=== PATIENT | female | born 1940 | race Caucasian/White ===

== ENCOUNTER 2017-12-22 21:26 | Emergency (ER) | payer MEDICARE ==
[~2017-12-22] VITALS: Ht 157.5 cm; Wt 72.6 kg
[2017-12-22 22:13] LABS: BASOPHILS ABSOLUTE AUTO 0.01 K/mm3 (0.00-0.23); BASOPHILS PERCENT AUTO 0 % (0-2); EOSINOPHILS ABSOLUTE AUTO 0.02 K/mm3 (0.00-0.68); EOSINOPHILS PERCENT AUTO 0 % (0-6); Hematocrit 37.8 % (33.0-51.0); Hemoglobin 11.5 g/dL (11.5-16.0); IMMATURE GRAN ABSOLUTE AUTO 0.03 K/mm3 (0.00-0.10); IMMATURE GRAN PERCENT AUTO 0 % (0-1); LYMPHOCYTES ABSOLUTE AUTO 1.44 K/mm3 (0.84-5.20); LYMPHOCYTES PERCENT AUTO 21 % (21-46); MONOCYTES ABSOLUTE AUTO 0.61 K/mm3 (0.16-1.47); MONOCYTES PERCENT AUTO 9 % (4-13); Mean Corpuscular HGB 26.7 pg (26.0-34.0); Mean Corpuscular HGB Conc 30.4 g/dL (31.5-36.5); Mean Corpuscular Volume 88 fL (80-100); Mean Platelet Volume 10.1 fL (9.1-12.4); NEUTROPHILS ABSOLUTE AUTO 4.65 K/mm3 (1.96-9.15); NEUTROPHILS PERCENT AUTO 69 % (41-73); Platelet Count 285 K/mm3 (150-400); RDW Coefficient Variation 16.6 % (11.7-14.2); RDW Standard Deviation 53.8 fL (35.1-46.3); Red Blood Cell Count 4.31 M/mm3 (3.80-5.20); White Blood Cell Count 6.76 K/mm3 (4.00-11.30)
[2017-12-22 22:39] LABS: Alanine Aminotransfer (ALT/SGP 10 U/L (12-78); Albumin, Blood 3.3 g/dL (3.4-5.0); Albumin/Globulin Ratio 0.8 (0.8-1.8); Alk Phos 70 U/L (50-136); Anion Gap 7 mmol/L (6-16); Aspartate Aminotrans (AST/SGOT 13 U/L (12-37); Bilirubin, Total 0.8 mg/dL (0.1-1.0); Blood Urea Nitrogen 10 mg/dL (8-24); Bun/Creatinine Ratio 17.1 (12.0-20.0); CO2, Blood 27 mmol/L (21-32); Calcium, Blood 8.7 mg/dL (8.5-10.1); Chloride, Blood 108 mmol/L (98-108); Creatinine, Blood 0.59 mg/dL (0.40-1.00); Globulin, Blood 4.1 g/dL (2.2-4.0); Glomerular Filtration Rate >60 (60-); Glucose, Blood 102 mg/dL (70-99); Potassium, Blood 3.9 mmol/L (3.5-5.5); Sodium, Blood 142 mmol/L (136-145); Total Protein, Blood 7.4 g/dL (6.4-8.2); Troponin I <0.015 ng/mL (0.000-0.040)
[2017-12-23] MEDS ORDERED: HYDROCODON-ACE1 EACH PO (13:37)
[2017-12-23] MEDS ORDERED: Zofran4 MG PO (14:20)
== END 2017-12-23 01:00 | disposition home or self-care (01) ==
LOC: ER 21:26
PROVIDERS: Emergency Medicine
DX: S16.1XXA Strain of muscle, fascia and tendon at neck level, initial encounter (principal); S00.83XA Contusion of other part of head, initial encounter; W19.XXXA Unspecified fall, initial encounter
CPT/HCPCS: 70450; 71046; 72040; 80053; 84484; 85025; 93005; 93010; 99284-25

== ENCOUNTER 2017-12-23 10:06 | Emergency (ER) | payer MEDICARE ==
[~2017-12-23] VITALS: Ht 157.5 cm; Wt 68.0 kg
[2017-12-23] MEDS ORDERED: HYDROCODON-ACE1 EACH PO (13:37)
[2017-12-23] MEDS ORDERED: Zofran4 MG PO (14:20)
== END 2017-12-23 15:20 | disposition home or self-care (01) ==
LOC: ER 10:06
DX: S12.01XA Stable burst fracture of first cervical vertebra, initial encounter for closed fracture (principal); S12.110A Anterior displaced Type II dens fracture, initial encounter for closed fracture; S12.030A Displaced posterior arch fracture of first cervical vertebra, initial encounter for closed fracture; W19.XXXA Unspecified fall, initial encounter
CPT/HCPCS: 36415; 72125; 96372; 96374; 96375; 96376; 99283-25; J0780; J1170; J1200; J2405; J3010; L0160

== ENCOUNTER 2019-02-10 16:39 | Inpatient (IN) | payer MEDICARE, OTHER ==
[~2019-02-10] VITALS: Ht 162.6 cm; Wt 67.3 kg
[~2019-02-10 16:39] MED LIST: HYDROCODON-ACE1 EACH PO; Zofran4 MG PO
[2019-02-10 17:24] LABS: BASOPHILS ABSOLUTE AUTO 0.02 K/mm3 (0.00-0.23); BASOPHILS PERCENT AUTO 0 % (0-2); EOSINOPHILS PERCENT AUTO 0 % (0-6); Hematocrit 19.8 % (33.0-51.0); IMMATURE GRAN ABSOLUTE AUTO 0.25 K/mm3 (0.00-0.10); IMMATURE GRAN PERCENT AUTO 3 % (0-1); LYMPHOCYTES ABSOLUTE AUTO 0.58 K/mm3 (0.84-5.20); LYMPHOCYTES PERCENT AUTO 7 % (21-46); MONOCYTES ABSOLUTE AUTO 0.63 K/mm3 (0.16-1.47); MONOCYTES PERCENT AUTO 8 % (4-13); Mean Corpuscular HGB Conc 25.3 g/dL (31.5-36.5); Mean Corpuscular Volume 91 fL (80-100); Mean Platelet Volume 10.3 fL (9.1-12.4); NEUTROPHILS ABSOLUTE AUTO 6.86 K/mm3 (1.96-9.15); NEUTROPHILS PERCENT AUTO 82 % (41-73); NRBC ABSOLUTE 0.03 K/mm3 (0.00-0.02); NRBC Auto 0.4 /100 WBC (0.0-0.2); Platelet Count 148 K/mm3 (150-400); RDW Coefficient Variation 22.8 % (11.7-14.2); RDW Standard Deviation 71.6 fL (35.1-46.3); Red Blood Cell Count 2.17 M/mm3 (3.80-5.20); White Blood Cell Count 8.34 K/mm3 (4.00-11.30)
[2019-02-10 17:37] LABS: Alanine Aminotransfer (ALT/SGP 12 U/L (12-78); Albumin, Blood 3.2 g/dL (3.4-5.0); Albumin/Globulin Ratio 0.9 (0.8-1.8); Alk Phos 60 U/L (50-136); Anion Gap 8 mmol/L (6-16); Aspartate Aminotrans (AST/SGOT 7 U/L (12-37); Bilirubin, Total 1.4 mg/dL (0.1-1.0); Blood Urea Nitrogen 15 mg/dL (8-24); Bun/Creatinine Ratio 17.9 (12.0-20.0); CO2, Blood 25 mmol/L (21-32); Calcium, Blood 8.8 mg/dL (8.5-10.1); Chloride, Blood 110 mmol/L (98-108); Creatinine, Blood 0.84 mg/dL (0.40-1.00); Ethanol (Alcohol), Blood, Med <3 mg/dL; Globulin, Blood 3.4 g/dL (2.2-4.0); Glomerular Filtration Rate >60 (60-); Glucose, Blood 142 mg/dL (70-99); Potassium, Blood 3.6 mmol/L (3.5-5.5); Sodium, Blood 143 mmol/L (136-145); Total Protein, Blood 6.6 g/dL (6.4-8.2)
[2019-02-10 17:47] LABS: International Normalized Ratio 1.18; Prothrombin Time Results 12.3 Sec (9.7-11.5)
--- NOTE | 2019-02-10 18:34 | NUR ---
Spoke with Dr Cerda and discussed case. Pt resting on gurney and is non verbal. Pt's daughter Ciara and Pt's granddaughter are present during visit. Pt appears comfortable with no S/S of distress at this time. Therapeutic discussion occured and listend to Ciara express concerns if she could have done something to prevent this from happening. Reassured Ciara and offered emotional support. Ciara tearful for much of the visit. Discussed code status with Ciara. Ciara states she does not think her mom would want to have any extraordinary measures such as CPR and Intubation but would like to discuss further with rosi. Instructed Ciara Palliative Care will continue to follow Pt for therapeutic visits and will revisit goals of care as needed. Abeba express appreciation on visit and is agreeable with continued visits. Palliative Care will F/U with Pt once admitted to the floor.
--- NOTE | 2019-02-11 04:13 | NUR ---
GI CONSULT CALLED IN TO ANSWERING SERVICE. DR WALI SEYMOUR [facility]. ([id number])
[2019-02-11 05:17] LABS: Hematocrit 22.7 % (33.0-51.0); Hemoglobin 6.3 g/dL (11.5-16.0); Mean Corpuscular HGB 24.7 pg (26.0-34.0); Mean Corpuscular HGB Conc 27.8 g/dL (31.5-36.5); Mean Corpuscular Volume 89 fL (80-100); NRBC ABSOLUTE 0.11 K/mm3 (0.00-0.02); NRBC Auto 1.4 /100 WBC (0.0-0.2); Platelet Count 120 K/mm3 (150-400); RDW Coefficient Variation 19.9 % (11.7-14.2); RDW Standard Deviation 60.4 fL (35.1-46.3); Red Blood Cell Count 2.55 M/mm3 (3.80-5.20); White Blood Cell Count 7.63 K/mm3 (4.00-11.30)
[2019-02-11 05:34] LABS: Anion Gap 8 mmol/L (6-16); Blood Urea Nitrogen 10 mg/dL (8-24); Bun/Creatinine Ratio 14.5 (12.0-20.0); CO2, Blood 24 mmol/L (21-32); Chloride, Blood 113 mmol/L (98-108); Creatinine, Blood 0.69 mg/dL (0.40-1.00); Glomerular Filtration Rate >60 (60-); Glucose, Blood 81 mg/dL (70-99); Potassium, Blood 3.3 mmol/L (3.5-5.5); Sodium, Blood 145 mmol/L (136-145)
--- NOTE | 2019-02-11 05:51 | NUR ---
PATIENT ARRIVED TO THE UNIT AT 2144 AND HER FIRST UNIT OF BLOOD WAS JUST FINISHING WITH ITS TRANSFUSION. 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 SHE IS PLEASANT AND UPBEAT BUT IS UNABLE TO COMMUNICATE OR MAKE HER NEEDS KNOWN. SHE WAS TRANSFUSED WITH A SECOND UNIT OF BLOOD ON THE UNIT AND A SECOND THROUGH AN IV IN HER RIGHT AC. A SECOND IV WAS PLACED IN HER LEFT FOREARM THROUGH WHICH HER MAINTENANCE FLUIDS AND PROTONIX ARE INFUSING. BED IN LOWEST POSITION WITH WHEELS LOCKED AND ALARM ON. CALL LIGHT WITHIN REACH. REPORT GIVEN TO ONCDEVI COLEMAN.
[2019-02-11 06:30] LABS: BAND PERCENT MAN 2 % (0-8); BASOPHILS ABSOLUTE MAN 0.15 K/mm3 (0.00-0.23); BASOPHILS PERCENT MAN 2 % (0-2); BLASTS PERCENT MAN 1 % (0-0); EOSINOPHILS PERCENT MAN 0 % (0-6); LYMPHOCYTES ABSOLUTE MAN 1.29 K/mm3 (0.84-5.20); LYMPHOCYTES PERCENT MAN 17 % (21-46); METAMYELOCYTE ABSOLUTE MAN 0.22 K/mm3 (0.00-0.00); METAMYELOCYTE PERCENT MAN 3 % (0-0); MONOCYTES ABSOLUTE MAN 0.38 K/mm3 (0.16-1.47); MONOCYTES PERCENT MAN 5 % (4-13); NEUTROPHILS ABSOLUTE MAN 5.41 K/mm3 (1.96-9.15); PROMYELOCYTE ABSOLUTE MAN 0.07 K/mm3 (0.00-0.00); PROMYELOCYTE PERCENT MAN 1 % (0-0); SEG NEUTROPHILS PERCENT MAN 69 % (41-73); TOTAL CELLS COUNTED 100
--- NOTE | 2019-02-11 06:35 | NUR ---
HgB 6.[address] LUU NOTIFIED AND ORDERED ONE UNIT PRBC.
[2019-02-11 12:43] LABS: Hematocrit 28.6 % (33.0-51.0); Hemoglobin 8.2 g/dL (11.5-16.0); Mean Corpuscular HGB 25.9 pg (26.0-34.0); Mean Corpuscular HGB Conc 28.7 g/dL (31.5-36.5); Mean Corpuscular Volume 90 fL (80-100); Mean Platelet Volume 10.8 fL (9.1-12.4); NRBC ABSOLUTE 0.11 K/mm3 (0.00-0.02); NRBC Auto 1.4 /100 WBC (0.0-0.2); Platelet Count 123 K/mm3 (150-400); RDW Coefficient Variation 19.3 % (11.7-14.2); RDW Standard Deviation 59.2 fL (35.1-46.3); Red Blood Cell Count 3.17 M/mm3 (3.80-5.20); White Blood Cell Count 7.84 K/mm3 (4.00-11.30)
[2019-02-11 13:06] LABS: BASOPHILS PERCENT MAN 0 % (0-2); EOSINOPHILS PERCENT MAN 0 % (0-6); LYMPHOCYTES ABSOLUTE MAN 1.88 K/mm3 (0.84-5.20); LYMPHOCYTES PERCENT MAN 24 % (21-46); MONOCYTES ABSOLUTE MAN 0.23 K/mm3 (0.16-1.47); MONOCYTES PERCENT MAN 3 % (4-13); MYELOCYTE ABSOLUTE MAN 0.07 K/mm3 (0.00-0.00); MYELOCYTE PERCENT MAN 1 % (0-0); NEUTROPHILS ABSOLUTE MAN 5.64 K/mm3 (1.96-9.15); SEG NEUTROPHILS PERCENT MAN 72 % (41-73); TOTAL CELLS COUNTED 100
--- NOTE | 2019-02-11 13:28 | NUR ---
PATIENT NOTED TO HAVE A REDDENED BOTTOM. WITH LAST CHANGE WE APPLIED SOME BARRIER CREAM AND A MEPILEX BANDAGE TO THE SACRUM TO HELP PROTECT IT. IT APPEARS TO HAVE SOME PREVIOUS BREAKDOWN THAT HAS SINCE HEALED. Q2HRS REPOSITIONING.
[2019-02-11 15:04] LABS: Hemoglobin 8.1 g/dL (11.5-16.0)
--- NOTE | 2019-02-11 15:07 | NUR ---
Spoke with Janene from PT and discussed case. Pt resting in bed and is non verbal. Pt is able to answer yes and no questions by nod her head up and down and side to side. Pt denies pain and dyspnea. When ask if comfortable Pt indicates yes by nod her her head up and down. Discussed case with bedside nurse Rossana. Reviewed hospitalist notes. Palliative Care will remain available.
--- NOTE | 2019-02-11 15:30 | NUR ---
SHIFT SUMMARY THE PATIENT HAS HAD AND UNEVENTFUL DAY. SHE RECEIVED A TOTAL OF 3 UNITS OF PRBC'S SINCE ADMIT LAST NIGHT AND HAS TOLERATED THE TRANSFUSIONS WITHOUT ANY REACTIONS NOTED. VITALS HAVE REMAINED STABLE. DR FANG CAME TO EXAMINE PATIENT THIS MORNING AND ORDERED 2 BAGS OF K-RIDERS; NS WITH 20MeQ ON HOLD AND WILL RESUME AT 50ML/HR AT THE COMPLETION OF THE K-RIDE INFUSIONS. THE PATIENT IS ALERT BUT RESPONDS AT MOST TO YES/NO QUESTIONS. RIGHT-SIDED WEAKNESS NOTED. THE PATIENT IS REPOSITIONED FREQUENTLY AND CHANGED NEEDED. WILL CONTINUE TO MONITOR AND PROVIDE CARE NEEDED.
--- NOTE | 2019-02-11 17:01 | NUR ---
Spiritual Care inital note: I met this pt's family last evening in ED. DenisrCiara is an employee here and appreciaitive of emotional/spiritual support. This afternoon, no family was present when I visited pt. She appeared peaceful and well cared-for by nursing. Prayer provided at bedside. [facility] will remain available.
--- NOTE | 2019-02-11 19:25 | NUR ---
BOTH BAGS OF K-RIDERS COMPLETED INFUSING. NS WITH 20MEQ KCL INFUSING NOW AT 50/HR. BAG NOT SCANNED IT IS SAME BAG OF FLUIDS FROM THIS AFTERNOON.
[2019-02-11 20:46] LABS: Hematocrit 27.5 % (33.0-51.0); Hemoglobin 7.9 g/dL (11.5-16.0)
--- NOTE | 2019-02-12 04:14 | NUR ---
Shift Summary Patient has been sleeping well overnight. Her neuro status has remained unchanged. She has right side hemiplegia with some right toe and foot movement. She nods "yes" and "no", and appears to understand what is said to her, but she has produced almost no verbal communication. Assisted to reposition q2h. Monitoring H&H labs closely -- 20:00 hgb result of 7.9 was reported to Rayne Haro NP per protocol and no new orders were recieved. She recommended to wait until 0501 check unless symptomatic, and report per protocol again if necessary at that time.
[2019-02-12 05:17] LABS: Hematocrit 25.7 % (33.0-51.0); Hemoglobin 7.3 g/dL (11.5-16.0)
--- NOTE | 2019-02-12 05:30 | NUR ---
Hemoglobin Hgb of 7.3 this AM -- called hospitalist per protocol, no new orders recieved at this time. Pt is asymptomatic. Will inform oncoming shift of hgb trend.
[2019-02-12 05:33] LABS: Anion Gap 9 mmol/L (6-16); Blood Urea Nitrogen 8 mg/dL (8-24); Bun/Creatinine Ratio 13.1 (12.0-20.0); CO2, Blood 22 mmol/L (21-32); Chloride, Blood 112 mmol/L (98-108); Creatinine, Blood 0.61 mg/dL (0.40-1.00); Glomerular Filtration Rate >60 (60-); Glucose, Blood 73 mg/dL (70-99); Magnesium, Blood 1.9 mg/dL (1.6-2.4); Potassium, Blood 3.9 mmol/L (3.5-5.5); Sodium, Blood 143 mmol/L (136-145)
--- NOTE | 2019-02-12 05:58 | NUR ---
bus driver/monitor thech called to report 8 beats of v-tach, and a return to previous SR. This is the first occurance noted on telemetry. Discussed with charge histotechnologist, will relay information to oncoming shift
--- NOTE | 2019-02-12 14:44 | NUR ---
"DAY SURGERY RN | INTO DAY SURGERY Patient and patient family here with physicians discussing care."
--- NOTE | 2019-02-12 14:49 | NUR ---
"DAY SURGERY RN | TO ENDO ROOM REPORT OFF TO CALI RN."
--- NOTE | 2019-02-12 14:52 | NUR ---
02/12/19 1452 JIMMY BRADY History, Chart, Medications and Allergies reviewed before start of procedure.O2 VIA N/C INTACT THROUGHOUT SEDATION/PROCEDURE. 3-LEAD EKG REVIEWED WITH PHYSICIAN PRIOR TO START OF PROCEDURE.MONITOR INTACT WITH CONTINUOUS PULSE OXIMETRY AND INTERMITTENT BP.See Anesthesia record.
--- NOTE | 2019-02-12 18:11 | NUR ---
review of plan of care with physician and nursing. will speak with daughter about pt trajectory of diagnosis and advanced care plan if plan fails if and when she should consider hospice care to avoid suffering.
--- NOTE | 2019-02-12 18:16 | NUR ---
SHIFT SUMMARY PT RESTING QUIETLY, AWAKE, DURING SHIFT REPORT. PROTONIX DRIP AND NS INFUSING PER EMAR. PT ADMITTED FOR CVA, BUT FOUND TO POSSIBLY HAVE GIB WELL. PER REPORT, PT FOUND DOWN AFTER 20 HRS, BY DAUGHTER. PT RECENTLY MOVED FROM [facility] AND NOW LIVING WITH DAUGHTER. R SIDED DEFICITS NOTED WITH SM AMT OF SLIGHT MOVEMENT IN R ARM AND R LEG. R FACIAL DROOP. ABLE TO HEAR AND UNDERSTAND QUESTIONS, BUT ONLY ABLE TO ANS YES OR NO. PT NPO ALL DAY FOR EGD DONE THIS AFTERNOON, BUT ALSO NPO UNTIL ST EVAL FOR CVA. PT RETURNED FROM EGD THIS AFTERNOON; TOLERATED WELL. PT NOW TO HAVE COLONOSCOPY TOMORROW AND WILL CONTINUE TO BE NPO FOR THAT AND THEN HAVE ST EVAL AFTERWARDS. ORDERS TO PLACE NGT FOR BOWEL PREP ADMIN; DONE BY SANTOS COLEMAN. PT TOLERATED WELL. XRAY VERIFICATION COMPLETE. GOLYTELY TO BE STARTED AT 2000 TONIGHT; ORDERS ON CHART. FAMILY TO A COUPLE OF TIMES TODAY AND FOLLOWED PT TO DAY SX FOR EGD. FAMILY RETURNED TO AND EXPLAINED NGT PLACEMENT WELL. PT UNDERSTANDING. INCONTINENT OF BOWEL AND BLADDER ALL DAY. BROWN, LIQUID STOOL. PT DENIED PAIN, NO NEEDS TO PRESENT. CALL LT IN REACH.
--- NOTE | 2019-02-12 21:47 | NUR ---
At shift commence report received that NG tube had been placed for administration of Go-Lytely for prep for colonoscopy in the AM. Tube placement checked. HOB elevated to 75 degrees. Go-Lytely started per NG. No noted distress. Monitoring continues per medical assistant ob gyn. Call light in reach.
--- NOTE | 2019-02-12 23:38 | NUR ---
FIRST GALLON OF GO-LYTELY INGESTED. HAS HAD LARGE LIQUID STOOL, BROWN. WILL ASSESS AND IF NEEDED, WILL START SECOND GALLON PER MD ORDERS.
--- NOTE | 2019-02-13 04:46 | NUR ---
Pt remains NPO until swallow study completed. IVF of NS with 20mEq KCL infusing at 50 ml/hr, as well as a Protonix drip at 10 ml/hr, see MAR for details. Received Go-Lytely one gallon over the PM/ early night hours as prep for a colonoscopy scheduled for today per NG tube. Several liquid stools have happened since prep administered. Verbal response improved over shift, from moans in the beginning to one to two word answers later on. HOB elevated to prevent aspiration. Call light in reach.
[2019-02-13 05:20] LABS: Hematocrit 27.1 % (33.0-51.0); Hemoglobin 7.8 g/dL (11.5-16.0)
--- NOTE | 2019-02-13 06:04 | NUR ---
Pt continues to defecate brown tinged liquid stool. As per MD orders, 2nd gallon of Go-Lytely started. Changed again for incont of stool. Call light in reach.
[2019-02-13 08:39] LABS: Anion Gap 12 mmol/L (6-16); Blood Urea Nitrogen 6 mg/dL (8-24); Bun/Creatinine Ratio 9.1 (12.0-20.0); CO2, Blood 22 mmol/L (21-32); Calcium, Blood 7.9 mg/dL (8.5-10.1); Chloride, Blood 111 mmol/L (98-108); Creatinine, Blood 0.66 mg/dL (0.40-1.00); Glomerular Filtration Rate >60 (60-); Glucose, Blood 65 mg/dL (70-99); Magnesium, Blood 1.8 mg/dL (1.6-2.4); Potassium, Blood 3.4 mmol/L (3.5-5.5); Sodium, Blood 145 mmol/L (136-145)
--- NOTE | 2019-02-13 13:23 | NUR ---
PATIENT UNABLE TO SPEAK, NODS YES, FAMILY HERE TO CONSENT FOR CARE.
--- NOTE | 2019-02-13 13:38 | NUR ---
02/13/[address] HERE TO PROVIDE ANESTHESIA CARE, PLEASE SEE DETAILED RECORD OF CARE. History, Chart, Medications and Allergies reviewed before start of procedure. MONITOR INTACT WITH CONTINUOUS PULSE OXIMETRY AND INTERMITTENT BP. O2 VIA N/C INTACT THROUGHOUT SEDATION/PROCEDURE.
--- NOTE | 2019-02-13 17:02 | NUR ---
SHIFT SUMMARY PT RECEIVED 1/2 OF 2ND BOTTLE OF GOLYTELY THIS MORNING AND TOLERATED WITH NO PROBLEM. DID FINALLY CLEAR AND NOTIFIED DAY SURGERY AT 1030. FAMILY IN ROOM. DAY SURGERY HERE TO PICK PT UP AT 1315 AND LEFT VIA GURNEY. RETURNED APPROX 1600 AWAKE AND ALERT. FAMILY BACK IN ROOM. RISK TECH CAME TO SEE PT THIS A.M. BUT PALMIRA WAS PUT ON HOLD DUE TO COLONOSCOPY PREP BEING GIVEN. PT HAS BEEN ABLE TO YES/NO AND NOD/SHAKE HER HEAD BUT NO WORD BEYOND THAT OR ATTEMPTS TO SPEAK. SMILES EASILY AND APPEARS TO UNDERSTAND.
--- NOTE | 2019-02-14 04:22 | NUR ---
REPOSITIONED OFTEN FOR COMFORT AND SKIN MAINTENACE. RIGHT SIDE REMAINS WEAK, RIGHT FACIAL DROOP CONTINUES. IVF OF NS WITH 20 MEQ KCL CONTINUES AT 50 ML/HR PER MD ORDERS. VERBAL RESPONSE CONTINUES TO BE 1 OR 2 WORD ANSWERS TO QUESTIONS POSED. RESPONSE IS APPROPRIATE TO QUESTIONS. CALL LIGHT IN REACH.
[2019-02-14 07:52] LABS: BASOPHILS ABSOLUTE AUTO 0.02 K/mm3 (0.00-0.23); BASOPHILS PERCENT AUTO 0 % (0-2); EOSINOPHILS ABSOLUTE AUTO 0.01 K/mm3 (0.00-0.68); EOSINOPHILS PERCENT AUTO 0 % (0-6); Hematocrit 28.4 % (33.0-51.0); IMMATURE GRAN ABSOLUTE AUTO 0.34 K/mm3 (0.00-0.10); IMMATURE GRAN PERCENT AUTO 5 % (0-1); LYMPHOCYTES ABSOLUTE AUTO 1.41 K/mm3 (0.84-5.20); LYMPHOCYTES PERCENT AUTO 21 % (21-46); MONOCYTES ABSOLUTE AUTO 0.53 K/mm3 (0.16-1.47); MONOCYTES PERCENT AUTO 8 % (4-13); Mean Corpuscular HGB 26.2 pg (26.0-34.0); Mean Corpuscular HGB Conc 28.2 g/dL (31.5-36.5); Mean Platelet Volume 9.6 fL (9.1-12.4); NEUTROPHILS PERCENT AUTO 66 % (41-73); Platelet Count 140 K/mm3 (150-400); RDW Coefficient Variation 20.4 % (11.7-14.2); Red Blood Cell Count 3.05 M/mm3 (3.80-5.20); White Blood Cell Count 6.81 K/mm3 (4.00-11.30)
[2019-02-14 07:53] LABS: Mean Corpuscular Volume 93 fL (80-100)
[2019-02-14 08:06] LABS: Anion Gap 12 mmol/L (6-16); Blood Urea Nitrogen 6 mg/dL (8-24); Bun/Creatinine Ratio 10.8 (12.0-20.0); CO2, Blood 21 mmol/L (21-32); Calcium, Blood 8.1 mg/dL (8.5-10.1); Chloride, Blood 108 mmol/L (98-108); Creatinine, Blood 0.56 mg/dL (0.40-1.00); Glomerular Filtration Rate >60 (60-); Glucose, Blood 52 mg/dL (70-99); Potassium, Blood 3.5 mmol/L (3.5-5.5); Sodium, Blood 141 mmol/L (136-145)
--- NOTE | 2019-02-14 18:25 | NUR ---
SHIFT SUMMARY PT UP IN RECLINER CHAIR MID MORNING AND TOLERATED TIL APPROX MID AFTERNOON. FAMILY AT BEDSIDE THIS MORNING. SHAKES HER HEAD NO WHEN ASKED IF SHE HAS PAIN OR DISCOMFORT. DISCHARGE HELD DUE TO CONTINUED NPO STATUS TIL SEEN BY CLINICAL SUPPORT TECH FOR SWALLOWING EVAL. REPOSITIONED FREQUENTLY. DID SAY HI TO GRANDDAUGHTER WHEN SHE CAME TO VISIT. R SIDE OF BODY ESSENTIALLY FLACCID AND DOESN'T MOVE WHEN ASK TO DO SO.
--- NOTE | 2019-02-15 05:58 | NUR ---
SHIFT SUMMARY NO ACUTE CHANGES TONIGHT. PT EXHIBITS R SIDE DEFICITS. RUE FLACCID, ABLE TO MINIMALLY MOVE RLE. MOSTLY NONVERB, ABLE TO ANSWER OR NOD YES/NO APPROP TO MOST Q'S. FOLLOWS SOME DIRECTIONS. R FACIAL DROOP NOTED. DOES NOT NEGLECT R VISUAL FIELD. TELE IN PLACE, NSR @ 68 BPM. NO TELE EVENTS. Q2H TURNS. INCONTINENT OF BOWEL/BLADDER. STRICT NPO, PENDING SWALLOW EVAL TODAY. DENIES PAIN OR DISCOMFORT. NSS c 20 MEQ KCL INFUSING AT 50 ML/HR. WILL CONT TO MONITOR AND PROVIDE CARE UNTIL PRESUMED BY ONCOMING RN.
[2019-02-15 09:51] LABS: BASOPHILS ABSOLUTE AUTO 0.03 K/mm3 (0.00-0.23); BASOPHILS PERCENT AUTO 1 % (0-2); EOSINOPHILS ABSOLUTE AUTO 0.01 K/mm3 (0.00-0.68); EOSINOPHILS PERCENT AUTO 0 % (0-6); Hematocrit 29.2 % (33.0-51.0); Hemoglobin 7.9 g/dL (11.5-16.0); IMMATURE GRAN PERCENT AUTO 6 % (0-1); LYMPHOCYTES ABSOLUTE AUTO 1.42 K/mm3 (0.84-5.20); LYMPHOCYTES PERCENT AUTO 22 % (21-46); MONOCYTES ABSOLUTE AUTO 0.51 K/mm3 (0.16-1.47); MONOCYTES PERCENT AUTO 8 % (4-13); Mean Corpuscular HGB Conc 27.1 g/dL (31.5-36.5); Mean Platelet Volume 11.1 fL (9.1-12.4); NEUTROPHILS ABSOLUTE AUTO 4.21 K/mm3 (1.96-9.15); NEUTROPHILS PERCENT AUTO 64 % (41-73); Platelet Count 157 K/mm3 (150-400); RDW Coefficient Variation 20.3 % (11.7-14.2); RDW Standard Deviation 66.1 fL (35.1-46.3); Red Blood Cell Count 3.04 M/mm3 (3.80-5.20); White Blood Cell Count 6.58 K/mm3 (4.00-11.30)
[2019-02-15 09:52] LABS: Mean Corpuscular Volume 96 fL (80-100)
[2019-02-15 10:20] LABS: Albumin, Blood 2.5 g/dL (3.4-5.0); Anion Gap 14 mmol/L (6-16); Blood Urea Nitrogen 6 mg/dL (8-24); Bun/Creatinine Ratio 9.7 (12.0-20.0); CO2, Blood 20 mmol/L (21-32); Calcium, Blood 7.8 mg/dL (8.5-10.1); Chloride, Blood 109 mmol/L (98-108); Creatinine, Blood 0.62 mg/dL (0.40-1.00); Glomerular Filtration Rate >60 (60-); Glucose, Blood 42 mg/dL (70-99); Phosphorus, Blood 3.5 mg/dL (2.5-4.9); Potassium, Blood 3.6 mmol/L (3.5-5.5); Sodium, Blood 143 mmol/L (136-145)
--- NOTE | 2019-02-15 11:18 | NUR ---
Echocardiogram completed.
--- NOTE | 2019-02-15 11:18 | NUR ---
Echocardiogram completed.
--- NOTE | 2019-02-15 18:07 | NUR ---
PATIENT WORKED WITH PT AND OT. OUT OF BED WITH PT AND WALKING. PT STILL NPO AND IS ON CLINIMIX AND LIPIDS. TO BE EVALUATED BY SPEECH ON FRIDAY. PATIENT IS MOSTLY NON VERBAL BUT CAN ANSWER YES AND NO QUESTIONS. SHE IS PLEASANT AND DOES NOT APPEAR TO BE IN ANY DISTRESS. HER RIGHT SIDE REMAINS FLACCID BUT SHE IS ABLE TO USE HER LEFT HAND NEEDED. FAMILY HAS BEEN IN .
[2019-02-16 06:07] LABS: Anion Gap 9 mmol/L (6-16); Blood Urea Nitrogen 7 mg/dL (8-24); Bun/Creatinine Ratio 13.6 (12.0-20.0); CO2, Blood 25 mmol/L (21-32); Chloride, Blood 106 mmol/L (98-108); Creatinine, Blood 0.51 mg/dL (0.40-1.00); Glomerular Filtration Rate >60 (60-); Glucose, Blood 115 mg/dL (70-99); Magnesium, Blood 1.9 mg/dL (1.6-2.4); Phosphorus, Blood 2.8 mg/dL (2.5-4.9); Potassium, Blood 3.2 mmol/L (3.5-5.5); Sodium, Blood 140 mmol/L (136-145)
--- NOTE | 2019-02-16 07:24 | NUR ---
SHIFT SUMMARY: PATIENT IS A&O X 3, ABLE TO MAKE NEEDS KNOW WITH ONE AND TWO WORD ANSWERS TO QUESTIONS. VS ARE STABLE, BP'S ARE ELEVATED BUT STABLE. T&P IS GIVEN Q 2 HOURS, PATIENT DOES NOT LIKE ORAL CARE AND REFUSES MANY TIMES, EDUCATION IS GIVEN ON IMPORTANCE OF MOUTH CARE AND GOOD HEALTH. CLINAMIX IS INFUSING @ 75ML/HR. ORDER WAS OBTAINED FOR BLOOD GLUCOSE CHECKS Q 6. RESULTS WERE 88, 125. WILL CONTINUE TO MONITOR.
--- NOTE | 2019-02-16 12:05 | NUR ---
Received call from bedside nurse Jazmin and discussed case. Jazmin reports Pt is showing some signs of decline and is not working with ST. Pt's daughter would like discussion with Palliative Care when she return after work at 3:30. Discussed case with ST, PT, and OT. Pt resting in bed upon arrival. Pt is non verbal but responds with yes and no questions by nod her head up and down, and side to side. Pt denies pain and discomfort at this time. Pt's level of understanding is questionable. Asked Pt if there is a clock in the room and she nods her head up and down indicating yes. Asked if there is a televison in the room with a side to side motion of head indicating no. Pt also indicated incorrect answers with questions regarding the color of this RN's shirt, and wearing a watch. Discussed concerns regarding not eating and drinking. Discussed unwilliness to work with ST with no response from Pt. Discussed goals of care to consider when daughter arrives such as SNF or home to focus on comfort with no response from Pt. Plan will be to meet with daughter to discuss goals of care.
--- NOTE | 2019-02-16 16:09 | NUR ---
Pt visit this afternoon. Pt's daughter at bedside. Pt is resting in bed with her eyes closed. Pt minimally responds with painful stimuli by opening her eyes and moving her ankita briefly. Pt quickly closes her eyes. Engaged in therapeutic discussions with daughter Ciara regarding goals of care. Discussed options including hospice. Suggested when considering goals of care consider values, Pt wishes, and quality of life. Listened as Ciara expresses concerns regarding Pt's current condition and states she feels Pt is showing some signs of decline. Ciara expresses appreciation of conversation and reports she will discuss with her sibblings regarding goals of care. Gave Ciara Palliative Care contact information. Spoke with Pt's bedside RN and discussed case. Palliative Care will remain available.
--- NOTE | 2019-02-16 18:28 | NUR ---
PATIENT WAS LETHARGIC FOR MOST OF THE SHIFT. AROUND 1800 PATIENT WAS CHANGED BY NURSE AND MELT ROOM OPERATOR. PATIENT WAS LAUGHING AND ANSWERING QUESTIONS . SHE WAS ABLE TO HOLD ON THE SIDE OF THE BED WHEN ROLLED. FAMILY HAS BEEN MEETING WITH PALLATIVE CARE REGARDING HOSPICE CARE. NO ACUTE CHANGES THIS SHIFT.
--- NOTE | 2019-02-16 23:50 | NUR ---
PATIENT RESTING IN BED. LIPIDS INFUSING AT 25 mL/HR. NON-VERBAL. NO S/SX OF PAIN. COOPERATIVE WITH CARE.
--- NOTE | 2019-02-17 00:16 | NUR ---
CBG Q6 CHECK: 104
--- NOTE | 2019-02-17 03:11 | NUR ---
SHIFT SUMMARY PATIENT HAD NO ACUTE CHANGES OBSERVED. NON-VERBAL THIS SHIFT USING HEAD MOTION TO ANSWER YES/NO QUESTIONS. PIV REMAINS INTACT. LIPID INFUSED AT 25 mL/HR. IV MULTI VITAMINS M.V.I. INFUSING AT 75 mL/HR. NPO. CBG Q6 CHECK 104. NO S/SX OF PAIN, SOB, AND N/V. AIRCRAFT ENGINE MECHANIC REPORTS WANDERING PACER AT 76. PREVENT MEPILEX ON COCCYX. COOPERATIVE WITH CARE. CALL LIGHT IN REACH. BED IN LOWEST POSITION. WILL CONTINUE TO MONITOR UNTIL DAY SHIFT NURSE ASSUMES CARE.
[2019-02-17 05:52] LABS: Magnesium, Blood 1.8 mg/dL (1.6-2.4); Phosphorus, Blood 2.7 mg/dL (2.5-4.9)
--- NOTE | 2019-02-17 06:29 | NUR ---
CBG Q6 CHECK: 121
--- NOTE | 2019-02-17 14:47 | NUR ---
THIS NURSE WAS CALLED TO PT ROOM BY MANAGER EXCHANGE WHO REPORTS A CHANGE IN THE PT SINCE SHE SAW HER YESTERDAY. UPON ASSESSMENT PT IS AWAKE BUT LESS ALERT THEN THIS MORNING WITH NO VERBAL SOUNDS AT ALL. THIS NURSE ASKED PT IF SHE COULD LOOK OUT THE WINDOW AND SHE DID MOVE HER EYES IN THE DIRECTION OF THE WINDOW BUT COULD NOT MAKE WORDS TO RESPOND. HER LEFT AND RIGHT SIDE ARE NOW BOTH VERY WEAK AND SHE DISPLAYS A LEFT SIDE FACIAL DROOP. BEFORE THIS CHANGE PT WAS A X 1 ASSIST FROM THE BED TO THE CHAIR AND TRANSFERRING HER FROM THE CHAIR TO THE BED WITH THE MANAGER EXCHANGE SHE WAS A MAX X 2 ASSIST WITH A GAIT BELT. DR LIN WAS NOTIFIED AND GAVE ORDERS TO CHECK HER CBG WHICH WAS WNL AND ORDERS LABS AND A STAT HEAD CT WHICH HAS NOW BEEN COMPLETED. CHARGE NURSE WAS NOTIFIED AND DAUGHTER LAMIN WAS CALLED AND SAID SHE WOULD BE UP TO THE ROOM SHORTLY. PT IS RESTING IN BED.
[2019-02-17 14:51] LABS: BASOPHILS ABSOLUTE AUTO 0.02 K/mm3 (0.00-0.23); BASOPHILS PERCENT AUTO 0 % (0-2); EOSINOPHILS ABSOLUTE AUTO 0.02 K/mm3 (0.00-0.68); EOSINOPHILS PERCENT AUTO 0 % (0-6); Hematocrit 32.5 % (33.0-51.0); Hemoglobin 9.1 g/dL (11.5-16.0); IMMATURE GRAN ABSOLUTE AUTO 0.34 K/mm3 (0.00-0.10); IMMATURE GRAN PERCENT AUTO 3 % (0-1); LYMPHOCYTES ABSOLUTE AUTO 1.58 K/mm3 (0.84-5.20); LYMPHOCYTES PERCENT AUTO 16 % (21-46); MONOCYTES ABSOLUTE AUTO 1.23 K/mm3 (0.16-1.47); MONOCYTES PERCENT AUTO 13 % (4-13); Mean Corpuscular HGB 25.7 pg (26.0-34.0); Mean Platelet Volume 10.5 fL (9.1-12.4); NEUTROPHILS ABSOLUTE AUTO 6.67 K/mm3 (1.96-9.15); NEUTROPHILS PERCENT AUTO 68 % (41-73); NRBC ABSOLUTE 0.03 K/mm3 (0.00-0.02); NRBC Auto 0.3 /100 WBC (0.0-0.2); Platelet Count 199 K/mm3 (150-400); RDW Coefficient Variation 20.2 % (11.7-14.2); RDW Standard Deviation 65.1 fL (35.1-46.3); Red Blood Cell Count 3.54 M/mm3 (3.80-5.20); White Blood Cell Count 9.86 K/mm3 (4.00-11.30)
[2019-02-17 14:54] LABS: Mean Corpuscular Volume 92 fL (80-100)
[2019-02-17 15:06] LABS: Albumin, Blood 2.7 g/dL (3.4-5.0); Anion Gap 6 mmol/L (6-16); Blood Urea Nitrogen 10 mg/dL (8-24); Bun/Creatinine Ratio 18.1 (12.0-20.0); CO2, Blood 28 mmol/L (21-32); Calcium, Blood 8.5 mg/dL (8.5-10.1); Chloride, Blood 106 mmol/L (98-108); Creatinine, Blood 0.55 mg/dL (0.40-1.00); Glomerular Filtration Rate >60 (60-); Glucose, Blood 111 mg/dL (70-99); Phosphorus, Blood 3.1 mg/dL (2.5-4.9); Potassium, Blood 3.8 mmol/L (3.5-5.5); Sodium, Blood 140 mmol/L (136-145)
--- NOTE | 2019-02-17 16:05 | NUR ---
SHIFT SUMMARY: PT HAS BEEN ALERT AND ORIENTED TO HER FAMILY WITH SMILING AND INTERACTIVE THIS MORNING ON THE PHONE WITH HER KIDS AND DAUGHTER AT BEDSIDE. THIS MORNING SHE HAD SIGNIFICANT RIGHT SIDE WEAKNESS AND WAS ONLY ABLE TO MUTTER "YES" OR "NO" BUT WHEN ASKED TO LLOK OUT THE WINDOW AT THE SNOW SHE TURNED HER HEAD TOWARD THE WINDOW SMILED AND SAID "YES". IV FLUIDS/ABO INFUSING WITH NO ISSUE. PT HAS BEEN INC ALL SHIFT. OT CAME AND WORKED WITH THE PT THIS AFTERNOON AND GOT HER UP TO THE CHAIR WITH X 1 ASSIST. PT WAS NAPPING IN HER CHAIR WHEN THE LOGISTICS TEAM LEADER CAME IN TO WORK WITH THE PT AND REPORTED THAT SHE HAD A HAD A CHANGE FROM YESTERDAY THAT IS NOTED IN THE PREVIOUS NOTE. DR LIN AND DAUGHTER LAMIN ARE ALL AWARE OF NEURO CHANGES AND DAUGHTER VOICED TO DR LIN THAT SHE WOULD LIKE TO CONTONUE WITH THE PLACEMENT OF THE FEEDING TUBE. DR LIN REPORTS THAT DR TOPETE IS AWARE AND THE PROCEDURE IS STILL SCHEDULED. DAY SURGERY NURSES CAME TO AUGER SUPERVISOR THE PT. PT WAS ASSISTED TO TRANSFER TO DAY SURGERY. PT WAS STABLE UPON TRANSFER AND OF NOW WILL RETURN TO HER ROOM AFTER HER PROCEDURE.
--- NOTE | 2019-02-17 16:28 | NUR ---
02/17/19 1628 JIMMY BRADY History, Chart, Medications and Allergies reviewed before start of procedure.MONITOR INTACT WITH CONTINUOUS PULSE OXIMETRY AND INTERMITTENT BP.3-LEAD EKG REVIEWED WITH PHYSICIAN PRIOR TO START OF PROCEDURE.O2 VIA N/C INTACT THROUGHOUT SEDATION/PROCEDURE. See Anesthesia record
--- NOTE | 2019-02-17 17:25 | NUR ---
RECEIVED REPORT FROM DAY SURGERY NURSE WHO REPORTS THAT THE SURGERY WENT WELL AND THE PEG TUBE WAS EFFECTIVELY PLACED. THIS NURSE CLARIFIED WITH DR ELDRIDGE WHO STATES WE SHOULD CONTINUE WITH IV NUTRITION ORDERED UNTIL HE SEES THE PT TOMORROW AND WILL GIVE NEW ORDERS THEN.
--- NOTE | 2019-02-17 17:57 | NUR ---
PT RETURNED TO ROOM AND WAS ASSISTED BACK TO BED. SHE IS AWAKE AND BUT ORIENTED. SHE CONTIUES WITH BILAT WEAKNESS. PEG TUBE IS NOW IN PLACE AND ABDOMINAL BINDER IS ALSO IN PLACE OVER PEG TUBE. FAMILY IS AT THE BEDSIDE.
--- NOTE | 2019-02-17 19:33 | NUR ---
Resting quietly. IVF infusing a per MAR - see MAR for details. HOB elevated. No noted acute distress. Call light in reach.
--- NOTE | 2019-02-18 03:51 | NUR ---
Peg tube was placed on day shift yesterday. Lipids and Climex have infused - see MAR and currently LR is infusing per MD orders. Repositioned about every two hours and changed for incont urine as needed. Occasionally voiced one or two word answers when assessed, right side seems flaccid and denied feeling in those limbs. However, left side seems to have weak responses to tactile stimuli. Call light in reach.
[2019-02-18 05:36] LABS: Magnesium, Blood 1.8 mg/dL (1.6-2.4); Phosphorus, Blood 3.4 mg/dL (2.5-4.9)
--- NOTE | 2019-02-18 08:34 | NUR ---
PATIENT DID NOT EAT BREAKFAST THIS SHIFT DUE TO BEING NPO AT THIS TIME.
--- NOTE | 2019-02-18 10:14 | NUR ---
0942 PATIENTS ATTENDS WERE CHANGED AND PATIENT WAS REPOSITONED.
--- NOTE | 2019-02-18 13:43 | NUR ---
PATIENT DID NOT EAT LUNCH THIS SHIFT DUE TO BEING NPO AT THIS TIME.
--- NOTE | 2019-02-18 14:01 | NUR ---
DR ELDRIDGE SAW PT AT THE BEDSIDE AND STATED IT WAS OK TO STOP CLINIMIX AND START TUBE FEEDING ORDERED.
--- NOTE | 2019-02-18 15:51 | NUR ---
SHIFT SUMMARY: PT IS AWAKE AND ALERT AND SMILES AND NODS YES/NO TO QUESTIONS. SHE HAS NO S/S OF PAIN. PER DR ELDRIDGE AND RILEY TUBE FEEDS WERE STARTED AND PT APPEARS TO BE TOLERATING IT WELL, HER LUNGS ARE CLEAR AND THE HOB IS ELEVATED. CLINIMIX WAS DCD NOW THAT THE TUBE FEED IS STARTED. SO FAR PT HAS NOT HAD A BM AND THE PRN SUPPOSITORY IS SCHEDULED FOR TONIGHT AND THE ONCOMING NURSE WILL BE NOTIFIED IN REPORT. PT DAUGHTER WAS HERE FOR A SHORT TIME THIS MORNING. THE TV WAS TURNED ON FOR THE PT SO SHE HAD SOMETHING TO WATCH SINCE SHE HAS BEEN AWAKE THIS AFTERNOON. THE PT REMAINS INC AND NEEDS FREQUENT TURNING AND REPOSITIONING SHE IS UNABLE TO MAKE HER NEEDS KNOWN. SHE IS RESTING IN BED NOW AND WITHIN VIEW.
--- NOTE | 2019-02-18 17:56 | NUR ---
PATIENT DID NOT EAT DINNER THIS SHIFT DUE TO BEING NPO AT THIS TIME.
[2019-02-19 05:38] LABS: Anion Gap 6 mmol/L (6-16); Blood Urea Nitrogen 11 mg/dL (8-24); Bun/Creatinine Ratio 20.7 (12.0-20.0); CO2, Blood 29 mmol/L (21-32); Calcium, Blood 8.9 mg/dL (8.5-10.1); Chloride, Blood 108 mmol/L (98-108); Creatinine, Blood 0.53 mg/dL (0.40-1.00); Glomerular Filtration Rate >60 (60-); Glucose, Blood 126 mg/dL (70-99); Phosphorus, Blood 3.5 mg/dL (2.5-4.9); Potassium, Blood 3.4 mmol/L (3.5-5.5); Sodium, Blood 143 mmol/L (136-145)
--- NOTE | 2019-02-19 05:52 | NUR ---
FIRE EXTINGUISHER INSPECTOR SUMMARY slept well between turning q2 hours. nods and smiles when spoken to. Witnessed two attempts to answer questions, and speech was too garbles to understand. Skin surrounding gastrostomy tube is intact, pink warm and dry. Patient tolerating Jevity 1.5 without difficulty. currently running at 35ml/hr since 0115. Large area of sacrum red but blanchable. as skin is unbroken and intact, elected to leave mepilex off and really pillow patient up to keep her off her bottom. no visible signs of pain or discomfort.
--- NOTE | 2019-02-19 10:02 | NUR ---
FEEDING RATE INCREASED TO 45ML/HR PER ORDERS. 5ML RESIDUAL, REINSTILLED. FLUSHED WITH 30ML.
--- NOTE | 2019-02-19 17:31 | NUR ---
SHIFT SUMMARY PT NONVERBAL. ANSWERED SOME YES/NO QUESTIONS AT START OF SHIFT. VSS. PT TRANSITIONED TO BOLUS FEEDINGS THIS SHIFT, TOLERATING WELL WITH 0-5ML RESIDUAL. REPOSITIONED AND CHANGED PRN AND ATLEAST Q2. PT'S DAUGHTER CONCERNED ABOUT THE PT'S R. ARM SWELLING. NURSE INFORMED HER THAT WE WERE AWAITING R.ARM ULTRASOUND TO BE COMPLETED. SHE WOULD LIKE TO BE CALLED WITH THE RESULTS WHEN THEY BECOME AVAILABLE. NO OTHER CHANGES THIS SHIFT. IV PATENT AND SALINE LOCKED. BED IN LOW POSITION, CALL LIGHT WITHIN REACH.
--- NOTE | 2019-02-20 06:09 | NUR ---
SHIFT SUMMARY PT IS AN 78 Y/O FEMALE, ADMITTED FOR A CVA. SHE RESPONDS TO VOICE, THOUGH WILL ONLY NOD OR SHAKE HER HEAD IN RESPONCE TO QUESTIONS. PT HAD A PEG TUBE PLACED, AND IS CURRENTLY RECEIVING BOLUS FEEDINGS 5X A DAY AND IS TOLERATING WELL. NO S/S OF PAIN OR DISTRESS. VITAL SIGNS REMAINED STABLE. NO OTHER ACUTE CHANGES I PT CONDITION NOTED DURING THE NIGHT. WILL CONTINUE TO MONITOR AND TREAT PER EMAR UNTIL HAND OFF TO DAY SHIFT RN.
--- NOTE | 2019-02-20 09:54 | NUR ---
DAUGHTER UPDATED ON DC. PT DAUGHTER LAMIN UPDATED ON PT DC TO [facility] AT 1130.
[2019-02-20] MEDS ORDERED: AMLO10 PT (10:52)
[2019-02-20] MEDS ORDERED: BISA10S PR (10:53)
[2019-02-20] MEDS ORDERED: ACET325 PT (10:54)
--- NOTE | 2019-02-20 11:12 | NUR ---
ATTEMPTED TO CALL REPORT ATTEMPTED TO CALL REPORT TO . NURSE UNAVAILABLE AT THIS TIME. NURSE TO CALL [facility] FOR REPORT.
--- NOTE | 2019-02-20 11:23 | NUR ---
REPORT CALLED TO [facility] REPORT CALLED TO NURSE BRAD AT . NO FURTHER QUESTIONS REQUIRED AT THIS TIME. CALL BACK NUMBER LEFT WITH BRAD.
--- NOTE | 2019-02-20 12:07 | NUR ---
PT DISCHARGED PT DISCHARGED AT 1208. PT IN STABLE CONDITION WITH VSS. REPORT CALLED TO GUILLERMINA. JARVIS SENT WITH PT. PT TRANSPORTED VIA GURNEY. DAUGHTER AWARE OF DC. PT SENT WITH PAPERWORK.
== END 2019-02-20 12:08 | DRG 377 ==
LOC: ER 16:39 → MEDS 19:39
PROVIDERS: Emergency Medicine; Family Medicine; Internal Medicine; Internal Medicine Gastroenterology; Nurse Practitioner Acute Care; ADMIT Hospitalist
PROC: 30233N1 Transfusion of Nonautologous Red Blood Cells into Peripheral Vein, Percutaneous Approach (ICD-10-PCS; 2019-02-11)
PROC: 0DJ08ZZ Inspection of Upper Intestinal Tract, Via Natural or Artificial Opening Endoscopic (ICD-10-PCS; principal; 2019-02-12 08:15)
PROC: 0DBH8ZZ Excision of Cecum, Via Natural or Artificial Opening Endoscopic (ICD-10-PCS; 2019-02-13)
PROC: 0DDN8ZX Extraction of Sigmoid Colon, Via Natural or Artificial Opening Endoscopic, Diagnostic (ICD-10-PCS; 2019-02-13)
PROC: 0DBK8ZZ Excision of Ascending Colon, Via Natural or Artificial Opening Endoscopic (ICD-10-PCS; 2019-02-13 12:15)
PROC: 0DBL8ZZ Excision of Transverse Colon, Via Natural or Artificial Opening Endoscopic (ICD-10-PCS; 2019-02-13 12:15)
PROC: 0DBM8ZZ Excision of Descending Colon, Via Natural or Artificial Opening Endoscopic (ICD-10-PCS; 2019-02-13 12:15)
PROC: 0DJ08ZZ Inspection of Upper Intestinal Tract, Via Natural or Artificial Opening Endoscopic (ICD-10-PCS; 2019-02-17)
DX: K92.2 Gastrointestinal hemorrhage, unspecified (principal); I63.512 Cerebral infarction due to unspecified occlusion or stenosis of left middle cerebral artery; G81.91 Hemiplegia, unspecified affecting right dominant side; D62 Acute posthemorrhagic anemia; I10 Essential (primary) hypertension; H91.90 Unspecified hearing loss, unspecified ear; M19.90 Unspecified osteoarthritis, unspecified site; Z87.891 Personal history of nicotine dependence; Z66 Do not resuscitate; I35.0 Nonrheumatic aortic (valve) stenosis; E87.5 Hyperkalemia; R29.810 Facial weakness; K63.89 Other specified diseases of intestine; K63.5 Polyp of colon; K57.30 Diverticulosis of large intestine without perforation or abscess without bleeding; K64.8 Other hemorrhoids; K64.4 Residual hemorrhoidal skin tags; E87.6 Hypokalemia
CPT/HCPCS: 36415; 36430; 70450; 74018; 80048; 80053; 80069; 82330; 82378; 82947; 83735; 84100; 85014; 85018; 85025; 85610; 85730; 86850; 86900; 86901; 86923; 87077; 87086; 87186; 92526; 92610; 93005; 93010; 93306; 93880; 93971; 96374; 96375; 97110; 97112; 97162; 97167; 97530; 97535; 99285-25; C1769; C9113; G0480; J0690; J0696; J2001; J2270; J2704; J3480; J7030; J7040; J7120; J7799; P9016; P9612